=== PATIENT | female | born 1980 | race Caucasian/White ===

== ENCOUNTER → 2017-05-22 | Outpatient (CLI) | payer OTHER ==
[~2017-05-22] MED LIST: BACTRIM DS 8001 TAB PO; HYDROCODONE1 TABLET PO; LORTAB 5/500 501 TAB PO; NOMEDS *; PERCOCET 5/3251 EACH PO; SEPTRA DS 800 M1 TAB PO; SULFAMETHOXAZOL1 TA6 PO; TRAMADOL 50MG T50 MG PO; TYLENOL W/CODEI1 TA2 PO; VIBRAMYCIN 100100 MG PO
== END ==
LOC: LAB 17:51
DX: L02.416 Cutaneous abscess of left lower limb (principal)